=== PATIENT | female | born 1990 | race Caucasian/White ===

== ENCOUNTER 2017-07-02 11:10 | Emergency (ER) | payer BC ==
[2017-07-02 11:21] VITALS: BP 137/91; PULSE 104; TEMP 99.4; BMI 22.8
[2017-07-02 11:30] LABS: URINE APPEARANCE Slightly; URINE BILIRUBIN Negative (NEGATIVE); URINE BLOOD Trace-intact (NEGATIVE); URINE COLOR YELLOW; URINE GLUCOSE (UA) Negative (NEGATIVE); URINE KETONE Negative (NEGATIVE); URINE LEUK ESTERASE 3+ (NEGATIVE); URINE NITRITE Negative (NEGATIVE); URINE PROTEIN Trace (NEGATIVE); URINE UROBILINOGEN 0.2 (0.2-1.0)
--- NOTE | 2017-07-02 11:49 | PDOC ---
History of Present Illness - General Chief Complaint: Back Pain Stated Complaint: BACK PAIN Time Seen by Provider: 07/02/17 11:35 History Source: Patient Exam Limitations: No Limitations - History of Present Illness Initial Comments: 07/02/17 11:49 27 yo female with pmh of leukemia as an has back pain. No injury, No other symptoms. Here today with Aunt who says that when she had leukemia as an , her back hurt in that area. I ask how or why that was the case since leukemia is a disease of the blood, she did not know and the patient's mother is unavailable. Patient has no other symptoms. Advil takes the pain away but then it returns. This has been going on for roughly a week. Patient also has history of scoliosis. Timing/Duration: 1 week Severity: mild Modifying Factors: improves with: medication Associated Symptoms: reports: denies symptoms Past History - Past Medical History Allergies/Adverse Reactions: Allergies Allergy/AdvReac Type Severity Reaction Status Date / Time No Known Allergies Allergy Verified 07/02/17 11:13 Home Medications: Ambulatory Orders Cephalexin [Keflex] 500 mg PO TID #30 capsule 07/02/17 Ibuprofen 400 mg PO ASDIR 07/02/17 Norethindrone-E.estradiol-Iron [Lo Loestrin Fe 1-10 Tablet] 1 tab PO DAILY 07/02 Cancer: Yes (ALL) Other medical history: scoliosis - Suicide/Smoking/Psychosocial Hx Smoking History: Never smoked Information on smoking cessation initiated: No Hx Alcohol Use: (social) Substance Use Type: None Review of Systems - Review of Systems Able to Perform ROS?: Yes Is the patient limited [place] proficient: No Constitutional: No: Symptoms Reported HEENTM: No: Symptoms Reported Respiratory: No: Symptoms reported Cardiac (ROS): No: Symptoms Reported ABD/GI: No: Symptoms Reported : No: Symptoms Reported Musculoskeletal: Yes: See HPI Integumentary: No: Symptoms Reported Neurological: No: Symptoms reported Psychiatric: No: Anxiety, Depression Endocrine: No: Symptoms Reported Hematologic/Lymphatic: No: Symptoms Reported All Other Systems: Reviewed and Negative *Physical Exam - Vital Signs Last Vital Signs Temp Pulse Resp BP Pulse Ox 99.4 F 104 H 18 137/91 98 07/02/17 11:10 07/02/17 11:10 07/02/17 11:10 07/02/17 11:10 07/02/17 11:10 - Physical Exam General Appearance: Yes: Nourished. No: Apparent Distress HEENT: positive: Normal ENT Inspection Neck: positive: Supple. negative: Tender Respiratory/Chest: positive: Lungs Clear, Normal Breath Sounds. negative: Chest Tender Cardiovascular: positive: Regular Rhythm, Regular Rate. negative: Murmur Gastrointestinal/Abdominal: positive: Normal Bowel Sounds, Flat, Soft Rectal Exam: positive: deferred Lymphatic: negative: Adenopathy, Tenderness Musculoskeletal: positive: Normal Inspection, Other (totally normal exam of the sacrum and surround musculature. Some mild lumbar paraspinal muscle tenderness. Mild Scoliosis noted.). negative: Decreased Range of Motion, Muscle Spasm, Vertebral Tenderness Extremity: positive: Normal Capillary Refill, Normal Inspection, Normal Range of Motion ED Treatment Course - LABORATORY CBC & Chemistry Diagram: 07/02/17 11:50 07/02/17 11:50 - ADDITIONAL ORDERS Additional order review: Laboratory Results 07/02/17 11:22 Urine Color Yellow Urine Appearance Slightly Urine pH 6.0 Ur Specific [place] 1.015 Urine Protein Trace Urine Glucose (UA) Negative Urine Ketones Negative Urine Blood Trace-intact H Urine Nitrite Negative Urine Bilirubin Negative Urine Urobilinogen 0.2 Urine HCG, Qual Negative *DC/Admit/Observation/Transfer Diagnosis at time of Disposition: Urinary tract infection Qualifiers: Urinary tract infection type: site unspecified Back pain Qualifiers: Back pain location: low back pain Chronicity: acute Back pain laterality: bilateral Sciatica presence: without sciatica Qualified Code(s): M54.5 - Low back pain; M54.5 - Low back pain - Discharge Dispostion Disposition: HOME Condition at time of disposition: Unchanged/Unknown Admit: No - Referrals Referrals: Skye Wyman MD [Staff Physician] - Lynne Simmons MD [Staff Physician] - Minda Cantu MD [Staff Physician] - Morgan Valdivia MD [Staff Physician] - - Patient Instructions Printed Discharge Instructions: DI for Urinary Tract Infection (UTI) Additional Instructions: Mervat- Please follow up with your regular doctor or one of the doctors I referred you to in case you do not have one. Take your x-ray and lab results with you. Return to us if any problems. Take the Keflex three times a day for ten days. Drink five 20oz bottles of water a day. Fady- Dr. Isaac Bower
[2017-07-02 12:01] LABS: URINE WBC 50-80 (3-5)
[2017-07-02] MEDS ORDERED: CEPHALEXIN MONOHYDRATE 500 MG CAPSULE (UD) PO ONE (12:07)
[2017-07-02 12:10] LABS: BASOPHIL 0.9 % (0-2.0); EOSINOPHIL 0.7 % (0-4.5)
[2017-07-02 12:13] LABS: MCH 31.1 pg (25.7-33.7); MCHC 35.2 g/dl (32.0-36.0); MEAN CELL VOLUME 88.3 fl (80-96); NEUTROPHILS 77.4 % (42.8-82.8); PLATELET COUNT 267 K/MM3 (134-434); RDW 11.5 % (11.6-15.6); WHITE BLOOD COUNT 11.6 K/mm3 (4.0-10.8)
[2017-07-02] MEDS ORDERED: CEPHALEXIN MONOHYDRATE 500 MG CAPSULE (UD) ONE (12:15)
[2017-07-02 12:18] LABS: ALBUMIN 4.3 g/dl (3.5-5.0); ALK PHOS 47 U/L (32-92); ANION GAP 6 (8-16); BILIRUBIN,TOTAL 0.7 mg/dl (0.2-1.0); CALCIUM 9.1 mg/dl (8.4-10.2); CO2 23 mmol/L (22-28); CREATININE 0.6 mg/dl (0.6-1.3); GLUCOSE,RANDOM 86 mg/dl (74-106); SGOT/AST 15 U/L (10-42); SGPT/ALT 12 U/L (10-40); TOT PROT 6.8 g/dl (6.4-8.3)
== END 2017-07-02 13:00 | disposition home or self-care (01) ==
LOC: FER 11:10
DX: N39.0 Urinary tract infection, site not specified (principal); M54.5 Low back pain; Z85.9 Personal history of malignant neoplasm, unspecified; C95.90 Leukemia, unspecified not having achieved remission
CPT/HCPCS: 36415; 72100-TC; 80053; 81003; 81015; 84703; 85025; 87086; 87186; 99284-25